=== PATIENT | male | born 1965 | race Caucasian/White ===

== ENCOUNTER 2024-02-21 12:32 | Emergency (ER) | payer OTHER, SELFPAY ==
[2024-02-21 12:38] VITALS: BP 116/90
--- NOTE | 2024-02-21 13:54 | ED.GENMED ---
History of Present Illness
General
Chief Complaint: Skin Surface Trauma
Source: patient
Exam Limitations: none
Time Seen by Provider: 02/21/24 12:45
Nursing documentation reviewed up to this point in time: agreed with
Travel History
Have you had any contact with someone who has COVID-19?: No
Do you have any symptoms of coronavirus? Fever > 100 degrees, chills, cough, shortness of breath, sore throat, loss of taste or smell, muscle aches, or headache?: No
History of Present Illness
History of Present Illness:
58-year-old male with past medical history of hypertension presenting to the emergency department today with concerns of a laceration on the right knee that occurred just prior to arrival when he was gardening when he hit his knee on what he
believes may have been a stump in the ground he was wearing long pants at the time there was some damage to the pants but believes his laceration was fairly clean. He is not sure when his last tetanus shot was. Denies any numbness weakness has
been able to walk ranging his knee fully.
Past History
Past History
ED Past Medical History: HTN
ED Past Surgical History: None
Social History
Personal:
Living: with family
Review of Systems
Review of Systems
Allergies reviewed?: Yes
All Other Systems: ROS reviewed and negative except as documented in HPI and ROS
Phy Exam
Physical Exam
Physical Exam:
GENERAL: Alert , in no apparent distress
EYE: pupils equal and reactive
NECK: Supple, no significant adenopathy.
ENT: o/p clr, mmm.
CARDIAC: Regular rate and rhythm .
LUNGS: Clear breath sounds bilaterally, no acute respiratory distress, no wheezes/rales/rhonchi
ABDOMEN: Soft, without focal tenderness, no r/g, no cvat
NEUROLOGICAL: Alert and oriented, no focal neuro deficits
SKIN: Laceration overlying the right patella 3 cm in total length, no specific foreign body seen explored to its base subcutaneous in depth no tendon involvement warm and dry, skin intact.
MUSCULOSKELETAL: No edema, well perfused. Full range of motion of lower extremities bilaterally
PSYCH: Normal and appropriate interaction.
Course
Orders/Labs/Results
Orders:
Orders
02/21/24 13:16
Cephalexin Monohydrate [Keflex] 500 mg PO NOW STA
Tetanus/Diphth/Acelpertussis [Adacel] 0.5 ml IM .ONCE ONE
Vital Signs
Initial and Last Documented VS:
Initial Vital Signs
Temp Pulse Resp BP Pulse Ox
98.5 F 98 18 116/90 98
02/21/24 12:38 02/21/24 12:38 02/21/24 12:38 02/21/24 12:38 02/21/24 12:38
Last Documented Vital Signs
Temp Pulse Resp BP Pulse Ox
98.5 F 98 18 116/90 98
02/21/24 12:38 02/21/24 12:38 02/21/24 12:38 02/21/24 12:38 02/21/24 12:38
Procedures
Laceration Closure
Right Middle Anterior Knee:
Status of Wound: clean
Size of Wound in cm: 3
Description of Wound Edges: sharp
Preparation: cleaned with saline
Anesthesia: 1% Lidocaine with epi
Revision/Debridement: minor revision and irrigate-direct pressure
Wound exploration: explored to base- no FB and no tendon involvement
Type of Closure: single layer closure
Skin Closure Material: 4-0 nylon
Number of sutures: 6
MDM/Problems Addressed
MDM/Problems Addressed:
58-year-old male presenting to the emergency department today with concerns of right knee laceration that occurred prior to arrival. Very clean in appearance cleaned out thoroughly here given a tetanus shot and also started on Keflex as this was an
outdoor wound and does claim to have borderline diabetes. Otherwise this was cleaned thoroughly and sutured with 6 total nonabsorbable sutures. Patient advised for follow-up in 2 weeks for suture removal and given strict return precautions for any
evidence of infection or complications.
*Critical Care Note
Total Time (30-74mins, 75-104mins- exclusive of procedures): Not Applicable
ED Attending Note
-
Portions of this chart may have been created with voice recognition software.� Occasional wrong word or��sound alike� substitutions may have occurred due to the inherent limitations of voice recognition software.
Discharge Plan
Departure
Patient Disposition: Home (Routine Discharge)
Date of Disposition: 02/21/24
Time of Disposition: 13:59
Patient with high blood pressure during this ER visit?: No
Condition: Good
Covid-19: Not Applicable
Discharge Problem:
Laceration of knee
Instructions: Laceration Repair With Stitches (DC)
Prescriptions:
New
cephalexin 500 mg capsule
500 mg PO TID 3 Days Qty: 9 0RF
Referrals:
Nemo Greene CRNP [Family Provider] -
Activity Restrictions/Additional Instructions:
You came to the emergency department today with concerns of laceration to your right knee. 6 total sutures were placed. These should be removed in 14 days. Please keep the area clean covered and take Keflex 3 times daily for the next 3 days to
reduce risk of infection. Return to the emergency department sooner for any worsening, new or concerning symptoms.
Interventions
Interventions:
*Risk Screen - Suicide Last Done: 02/21/24 12:38
*General Assessment Last Done: 02/21/24 12:38
*Neglect/Abuse Screening Last Done: 02/21/24 12:38
ED- Fall Risk Assessment Last Done: 02/21/24 13:12
*ED COVID-19 Vaccine History Last Done: 02/21/24 12:38
ED-Skin Assessment Last Done: 02/21/24 13:11
Discharge Date and Time
Print Language: KOREAN
[2024-02-21] MEDS: KEFLEX 500 MG PO (14:05)
[2024-02-21] MEDS: ADACEL 0.5 ML IM (14:06)
== END 2024-02-21 14:13 | disposition home or self-care (01) ==
LOC: EMR 12:32
PROVIDERS: EMERGENCY PHYSICIAN Emergency Medicine; FAMILY PHYSICIAN Nurse Practitioner
DX: S81.011A Laceration without foreign body, right knee, initial encounter (principal); W26.9XXA Contact with unspecified sharp object(s), initial encounter; Z23 Encounter for immunization; R73.03 Prediabetes
CPT/HCPCS: 99284; 90471; 12002; 90715

== ENCOUNTER → 2024-03-23 07:27 | Outpatient (REF) | payer OTHER, SELFPAY ==
[2024-03-23 08:30] LABS: % Basophils 0.4 % (0-2); % Eosinophils 1.9 % (0-6); % Immature Granulocytes 0.6 % (0-0.5); % Lymphocytes 31.2 % (20.5-51.1); % Monocytes 6.9 % (1.7-9.3); Absolute Eosinophils 0.1 10^3/uL (0-0.7); Absolute Lymphocytes 1.4 10^3/uL (1.2-3.4); Absolute Monocytes 0.3 10^3/uL (0.1-0.6); Absolute Neutrophils 2.7 10^3/uL (1.4-6.5); Hematocrit 42.8 % (39.0-52.0); Hemoglobin 14.9 g/dL (13.0-18.0); Mean Corp Hgb Conc. 34.8 g/dL (33.0-37.0); Mean Corpuscular Hgb 30.3 pg (27.0-31.0); Mean Platelet Volume 9.9 fL (7.4-10.4); Nucleated Red Blood Cells % 0 % (-); Platelet Count 191 10^3/uL (130-400); Red Blood Cell Count 4.92 10^6/uL (4.70-6.10); Red Cell Dist. Width 13.2 % (11.5-14.5); White Blood Cell Count 4.6 10^3/uL (4.8-10.8)
[2024-03-23 08:39] LABS: Urine Albumin Trace (Neg - Trace); Urine Bilirubin Negative (Negative); Urine Character Clear (Clear); Urine Color Yellow; Urine Glucose 3+ (Negative); Urine Ketone Negative (Negative); Urine Leukocyte Negative (Negative); Urine Nitrite Negative (Negative); Urine Occult Blood Negative (Negative); Urine Urobilinogen Negative (Neg - 1+)
[2024-03-23 09:23] LABS: Microalbumin, Random Urine 8.9 mg/dl (0.6-1.7); Microalbumin/creatinine Ratio 129.2 mg/g
[2024-03-23 10:17] LABS: ALT (SGPT) 55 U/L (0-50); AST (SGOT) 39 U/L (17-59); Albumin 4.4 g/dl (3.5-5.0); Alkaline Phosphatase 84 U/L (38-126); Blood Urea Nitrogen 19 mg/dl (9-20); Calcium 9.7 mg/dl (8.4-10.2); Carbon Dioxide 31 mmol/L (22-30); Chloride 101 mmol/L (98-107); Glucose 255 mg/dl (70-99); HDL Cholesterol 43 mg/dl; Potassium 4.3 mmol/L (3.5-5.1); Sodium 137 mmol/L (135-145); Total Bilirubin 0.6 mg/dl (0.2-1.3); Total Cholesterol 221 mg/dl (50-199); eGFR > 60.00
[2024-03-23 10:24] LABS: Free T4 1.03 ng/dl (0.78-2.19)
[2024-03-23 10:38] LABS: PSA, Total - Screen 0.67 ng/ml (0.0-4.0)
[2024-03-23 11:27] LABS: LDL Cholesterol, Calculated 54 mg/dl; Triglyceride 622 mg/dl (10-149); Very Low Density Lipoprotein 124 mg/dl (0-30)
[2024-03-23 12:09] LABS: LDL Cholesterol, Direct 88 mg/dl
== END ==
LOC: REG 07:27
PROVIDERS: ATTENDING PHYSICIAN Family Medicine
DX: E11.69 Type 2 diabetes mellitus with other specified complication (principal); Z12.5 Encounter for screening for malignant neoplasm of prostate; I10 Essential (primary) hypertension
CPT/HCPCS: 36415; 80053; 80061; 81003; 82043; 82570; 83036; 83721; 84439; 84443; 85025; G0103

== ENCOUNTER 2024-07-20 17:02 | Emergency (ER) | payer OTHER, SELFPAY ==
[2024-07-20 17:05] VITALS: BP 121/90
--- NOTE | 2024-07-20 20:04 | ED.GENMED ---
History of Present Illness
General
Chief Complaint: Skin Problem
Source: patient
Exam Limitations: none
Time Seen by Provider: 07/20/24 17:53
Nursing documentation reviewed up to this point in time: agreed with
History of Present Illness
History of Present Illness:
59-year-old male with past ministry of hypertension presenting to the emergency department today with concerns of a sharp pain that occurred to his right upper thigh when getting off the floor yesterday. Some radiation to the groin no changes in
bowel or bladder function no fever no numbness or weakness distally.
Past History
Past History
ED Past Medical History: HTN
ED Past Surgical History: None
Social History
Personal:
Living: with family
Review of Systems
Review of Systems
Allergies reviewed?: Yes
All Other Systems: ROS reviewed and negative except as documented in HPI and ROS
Phy Exam
Physical Exam
Physical Exam:
GENERAL: Alert , in no apparent distress
EYE: pupils equal and reactive
NECK: Supple, no significant adenopathy.
ENT: o/p clr, mmm.
CARDIAC: Regular rate and rhythm .
LUNGS: Clear breath sounds bilaterally, no acute respiratory distress, no wheezes/rales/rhonchi
ABDOMEN: Soft, without focal tenderness, no r/g, no cvat
NEUROLOGICAL: Alert and oriented, no focal neuro deficits
SKIN: Warm and dry, skin intact.
MUSCULOSKELETAL: No edema, well perfused.
PSYCH: Normal and appropriate interaction.
Course
Orders/Labs/Results
Orders:
Orders
07/20/24 17:12
US Non Vasc LOWER Ext RT Urgent
Comment:
Reason For Exam: middle thigh pain/lump/bruising
Vital Signs
Initial and Last Documented VS:
Initial Vital Signs
Temp Pulse Resp BP Pulse Ox
98.3 F 85 20 121/90 99
07/20/24 17:07/20/24 17:07/20/24 17:07/20/24 17:05 07/20/24 17:05
Last Documented Vital Signs
Temp Pulse Resp BP Pulse Ox
98.3 F 85 20 121/90 99
07/20/24 17:05 07/20/24 17:05 07/20/24 17:05 07/20/24 17:05 07/20/24 17:05
MDM/Problems Addressed
MDM/Problems Addressed:
51-year-old male presenting to the emergency department with feeling sharp pain to his right thigh after standing up quickly yesterday. He felt well throughout the day today no changes in bowel movements or urination no fevers no redness or warmth.
Here unable to appreciate any abnormality on examination. Good range of motion and strength. Ultrasound showing potential swollen lymph node to the thigh but no evidence of hernia or emergent process. Very abrupt in onset making DVT very
unlikely. No additional risk factors for DVT. Patient appear stable for discharge advised for close outpatient follow-up return precautions given.
*Critical Care Note
Total Time (30-74mins, 75-104mins- exclusive of procedures): Not Applicable
ED Attending Note
-
Portions of this chart may have been created with voice recognition software.� Occasional wrong word or��sound alike� substitutions may have occurred due to the inherent limitations of voice recognition software.
Discharge Plan
Departure
Patient Disposition: Home (Routine Discharge)
Date of Disposition: 07/20/24
Time of Disposition: 20:06
Patient with high blood pressure during this ER visit?: No
Condition: Good
Covid-19: Not Applicable
Discharge Problem:
Leg pain, right
Instructions: Muscle and bone pain - Discharge instructions
Prescriptions:
No Action
cephalexin 500 mg capsule
500 mg PO TID 3 Days Qty: 9 0RF
Referrals:
UNKNOWN - PT DOES,NOT KNOW [Family Provider] -
Stand Alone Forms: Return to Work
Activity Restrictions/Additional Instructions:
You came to the emergency department today with concerns of discomfort to the right thigh. Here you had an ultrasound that showed potential enlarged lymph node but otherwise no emergent findings. Please rest and take anti-inflammatories for
symptoms and follow close with the primary care doctor within 1 week for reassessment. Return to the emergency department immediately for any worsening, new or concerning symptoms
Interventions
Interventions:
*Risk Screen - Suicide Last Done: 07/20/24 17:05
*General Assessment Last Done: 07/20/24 17:05
*Neglect/Abuse Screening Last Done: 07/20/24 17:05
Discharge Date and Time
Print Language: [email or web address]
== END 2024-07-20 20:12 | disposition home or self-care (01) ==
LOC: EMR 17:02
PROVIDERS: EMERGENCY PHYSICIAN Emergency Medicine
DX: M79.604 Pain in right leg (principal); R10.30 Lower abdominal pain, unspecified; R22.41 Localized swelling, mass and lump, right lower limb; I10 Essential (primary) hypertension
CPT/HCPCS: 99284; 76882

== ENCOUNTER → 2024-08-10 07:12 | Outpatient (REF) | payer OTHER, SELFPAY ==
[2024-08-10 08:22] LABS: Urine Albumin Negative (Neg - Trace); Urine Bilirubin Negative (Negative); Urine Character Clear (Clear); Urine Color Yellow; Urine Glucose 3+ (Negative); Urine Ketone Negative (Negative); Urine Leukocyte Negative (Negative); Urine Nitrite Negative (Negative); Urine Occult Blood Negative (Negative); Urine Specific Gravity 1.015 (<1.030); Urine Urobilinogen Negative (Neg - 1+)
[2024-08-10 08:26] LABS: % Basophils 0.5 % (0-2); % Eosinophils 1.3 % (0-6); % Immature Granulocytes 0.3 % (0-0.5); % Lymphocytes 24.6 % (20.5-51.1); % Monocytes 7.8 % (1.7-9.3); % Neutrophils 65.5 % (42.2-75.2); Absolute Eosinophils 0.1 10^3/uL (0-0.7); Absolute Lymphocytes 1.5 10^3/uL (1.2-3.4); Absolute Monocytes 0.5 10^3/uL (0.1-0.6); Absolute Neutrophils 4.1 10^3/uL (1.4-6.5); Hematocrit 41.2 % (39.0-52.0); Hemoglobin 14.2 g/dL (13.0-18.0); Mean Corp Hgb Conc. 34.5 g/dL (33.0-37.0); Mean Corpuscular Hgb 30.1 pg (27.0-31.0); Mean Corpuscular Volume 87.5 fL (80.0-94.0); Mean Platelet Volume 10.1 fL (7.4-10.4); Nucleated Red Blood Cells % 0 % (-); Platelet Count 205 10^3/uL (130-400); Red Blood Cell Count 4.71 10^6/uL (4.70-6.10); Red Cell Dist. Width 13.2 % (11.5-14.5); White Blood Cell Count 6.2 10^3/uL (4.8-10.8)
[2024-08-10 08:53] LABS: Microalbumin, Random Urine 5.2 mg/dl (0.6-1.7)
[2024-08-10 08:56] LABS: ALT (SGPT) 53 U/L (0-50); AST (SGOT) 61 U/L (17-59); Albumin 4.4 g/dl (3.5-5.0); Alkaline Phosphatase 73 U/L (38-126); Blood Urea Nitrogen 14 mg/dl (9-20); Calcium 9.7 mg/dl (8.4-10.2); Carbon Dioxide 31 mmol/L (22-30); Chloride 99 mmol/L (98-107); Glucose 259 mg/dl (70-99); HDL Cholesterol 45 mg/dl; LDL Cholesterol, Calculated 95 mg/dl; Sodium 138 mmol/L (135-145); Total Cholesterol 207 mg/dl (50-199); Total Protein 6.7 g/dl (6.3-8.2); Triglyceride 338 mg/dl (10-149); Very Low Density Lipoprotein 67 mg/dl (0-30); eGFR > 60.00
[2024-08-10 09:13] LABS: Vitamin D, 25-OH*** 24.1 ng/mL (30-80)
[2024-08-10 09:27] LABS: PSA, Total - Screen 0.69 ng/ml (0.0-4.0)
[2024-08-10 10:17] LABS: Glycohemoglobin (HgbA1c) 9.1 % (4.0-5.6)
== END ==
LOC: REG 07:12
PROVIDERS: ATTENDING PHYSICIAN Family Medicine
DX: Z00.00 Encounter for general adult medical examination without abnormal findings (principal); E11.69 Type 2 diabetes mellitus with other specified complication
CPT/HCPCS: 36415; 80053; 80061; 81003; 82043; 82306; 82570; 83036; 84443; 85025; G0103

== ENCOUNTER → 2025-02-08 07:17 | Outpatient (REF) | payer OTHER, SELFPAY ==
[2025-02-08 08:50] LABS: % Basophils 0.4 % (0-2); % Eosinophils 2.2 % (0-6); % Immature Granulocytes 0.2 % (0-0.5); % Lymphocytes 29.1 % (20.5-51.1); % Monocytes 6.4 % (1.7-9.3); % Neutrophils 61.7 % (42.2-75.2); Absolute Eosinophils 0.1 10^3/uL (0-0.7); Absolute Lymphocytes 1.3 10^3/uL (1.2-3.4); Absolute Monocytes 0.3 10^3/uL (0.1-0.6); Absolute Neutrophils 2.8 10^3/uL (1.4-6.5); Hematocrit 40.3 % (39.0-52.0); Mean Corp Hgb Conc. 34.7 g/dL (33.0-37.0); Mean Corpuscular Hgb 30.2 pg (27.0-31.0); Mean Corpuscular Volume 86.9 fL (80.0-94.0); Mean Platelet Volume 9.7 fL (7.4-10.4); Nucleated Red Blood Cells % 0 % (-); Platelet Count 176 10^3/uL (130-400); Red Blood Cell Count 4.64 10^6/uL (4.70-6.10); Red Cell Dist. Width 13.3 % (11.5-14.5); White Blood Cell Count 4.5 10^3/uL (4.8-10.8)
[2025-02-08 08:51] LABS: Urine Albumin 1+ (Neg - Trace); Urine Bilirubin Negative (Negative); Urine Character Clear (Clear); Urine Color Yellow; Urine Glucose 4+ (Negative); Urine Ketone 1+ (Negative); Urine Leukocyte Negative (Negative); Urine Nitrite Negative (Negative); Urine Occult Blood 1+ (Negative); Urine Urobilinogen Negative (Neg - 1+)
[2025-02-08 09:00] LABS: Erythrocyte Sed Rate 7 mm/hour (0-20)
[2025-02-08 09:20] LABS: Urine Squamous Cell 0-2 /LPF (Few); Urine White Cell None Seen /HPF (0-5)
[2025-02-08 09:31] LABS: Microalbumin, Random Urine 6.6 mg/dl (0.6-1.7); Microalbumin/creatinine Ratio 61.4 mg/g
[2025-02-08 09:43] LABS: ALT (SGPT) 51 U/L (0-50); AST (SGOT) 39 U/L (17-59); Alkaline Phosphatase 82 U/L (38-126); Blood Urea Nitrogen 21 mg/dl (9-20); Calcium 9.2 mg/dl (8.4-10.2); Carbon Dioxide 30 mmol/L (22-30); Chloride 104 mmol/L (98-107); Glucose 233 mg/dl (70-99); HDL Cholesterol 44 mg/dl; Iron 83 ug/dl (49-181); LDL Cholesterol, Calculated 49 mg/dl; Potassium 4.2 mmol/L (3.5-5.1); Sodium 140 mmol/L (135-145); Total Cholesterol 145 mg/dl (50-199); Total Protein 6.3 g/dl (6.3-8.2); Triglyceride 263 mg/dl (10-149); Very Low Density Lipoprotein 52 mg/dl (0-30); eGFR > 60.00
[2025-02-08 09:48] LABS: Glycohemoglobin (HgbA1c) 9.8 % (4.0-5.6)
[2025-02-08 09:52] LABS: Percent Saturation 24 % (20-50); Total Iron Binding Capacity 337 ug/dl (261-462)
[2025-02-08 09:57] LABS: Monotest Negative (Negative); Vitamin D, 25-OH*** 17.1 ng/mL (30-80)
[2025-02-08 10:10] LABS: Cortisol, Random 11.1 ug/dl
[2025-02-08 10:46] LABS: Folate 12.1 ng/ml (2.76-20); Vitamin B12 233 pg/ml (239-931)
[2025-02-09 19:52] LABS: % Free Testosterone 2.2 % (1.6-2.9); Free Testosterone 107 pg/mL (47-244); Sex Hormone Binding Globulin 24 nmol/L (19-76); Total Testosterone 486 ng/dL (300-890)
[2025-02-10 02:22] LABS: ANA, IgG Reflex to HEp-2 None Detected (None Detected)
[2025-02-10 09:12] LABS: Rheumatoid Agglutinin Less Than 10 IU (<10 IU)
[2025-02-10 12:43] LABS: Lyme Antibody Screen, EIA Negative (Negative)
== END ==
LOC: REG 07:17
PROVIDERS: ATTENDING PHYSICIAN Family Medicine
DX: I10 Essential (primary) hypertension (principal)
CPT/HCPCS: 36415; 80053; 80061; 81003; 81015; 82043; 82306; 82533; 82570; 82607; 82728; 82746; 83036; 83540; 83550; 84270; 84402; 84403; 85025; 85652; 86038; 86308; 86430; 86618